=== PATIENT | male | born 1985 | race Caucasian/White ===

== ENCOUNTER 2017-10-31 19:39 | Emergency (ER) | payer BC ==
[~2017-10-31] VITALS: Ht 175.3 cm; Wt 81.8 kg
[2017-10-31 19:57] LABS: APPEARANCE CLEAR ((CLEAR)); BILIRUBIN NEGATIVE; BLOOD NEGATIVE; COLOR YELLOW ((YELLOW)); GLUCOSE (STRIP) NEGATIVE; KETONES NEGATIVE; LEUKOCYTES SMALL; NITRITE NEGATIVE; PROTEIN (STRIP) NEGATIVE; SPECIFIC GRAVITY 1.015 (1.000-1.030)
[2017-10-31 20:11] LABS: BACTERIA NONE SEEN /HPF; EPITHELIAL CELLS NONE SEEN /HPF; MUCUS TRACE /LPF; RED BLOOD CELLS 0-5 /HPF (0-5); UCUL ADDED? NO; WHITE BLOOD CELLS 0-5 /HPF (0-5)
[2017-10-31 20:22] LABS: MCH 31.6 PG (29.0-34.0); MCHC 36.4 G/DL (30.0-36.0); MCV 86.8 FL (86-99); PLATELET COUNT 342 K/uL (156-360); RBC DIS.WIDTH-CV 11.9 % (11.8-14.6); RBC DIS.WIDTH-SD 37.3 % (39-53); RED BLOOD COUNT 5.07 M/uL (4.00-5.50); WHITE BLOOD COUNT 8.1 K/uL (4.1-10.2)
[2017-10-31 20:31] LABS: ALBUMIN 4.8 g/dL (3.2-4.8); CHLORIDE 102 mEq/L (99-109); POTASSIUM 3.5 mEq/L (3.7-5.4); SODIUM 139 mEq/L (136-147)
[2017-10-31 20:33] LABS: GLUCOSE 99 mg/dL (70-99)
[2017-10-31 20:34] LABS: TOTAL PROTEIN 7.5 g/dL (6.4-8.3)
[2017-10-31 20:35] LABS: TOTAL BILIRUBIN 1.4 mg/dL (0.0-1.0)
[2017-10-31 20:37] LABS: ALKALINE PHOSPHATASE 83 IU/L (3-129); CREATININE 1.1 mg/dL (0.6-1.3); GFR ESTIMATE (CALCULATED) > 59 mL/min/ (58.99-99999)
[2017-10-31 20:38] LABS: UREA NITROGEN (BUN) 9 mg/dL (9-23)
[2017-10-31 20:39] LABS: AST (GOT) 23 IU/L (2-34)
[2017-10-31 20:40] LABS: ALT (GPT) 44 IU/L (3-49)
[2017-10-31] MEDS ORDERED: ZOFRAN4 MG PO (22:02)
[2017-10-31 22:13] VITALS: BP 144/87
== END 2017-10-31 22:13 | disposition home or self-care (01) ==
LOC: EME 19:39
DX: R10.9 Unspecified abdominal pain (principal); R11.2 Nausea with vomiting, unspecified; R19.7 Diarrhea, unspecified; Z87.891 Personal history of nicotine dependence
CPT/HCPCS: 76705; 80053; 81003; 85027; 99281; 99284; J2405; J7030; S0028